=== PATIENT | male | born 1985 | race African-American/Black ===

== ENCOUNTER 2023-03-08 13:30 | Emergency (ER) | payer SELFPAY ==
[~2023-03-08] VITALS: Ht 182.9 cm; Wt 95.0 kg
[2023-03-08 13:34] VITALS: BP 140/88; PULSE 112; RESP 22; TEMP 98.4; O2SAT 100
== END 2023-03-08 18:27 | disposition left against medical advice (07) ==
LOC: ER 13:30
DX: Z53.21 Procedure and treatment not carried out due to patient leaving prior to being seen by health care provider (principal)
CPT/HCPCS: 99281